=== PATIENT | male | born 1960 | race Caucasian/White ===

== ENCOUNTER → 2023-02-15 14:47 | Outpatient (REF) | payer OTHER, SELFPAY ==
--- NOTE | 2023-02-15 14:00 | CA_ITS ---
Transthoracic Echocardiogram Patient (Last, First, Middle): Scott Fuller, Gender: Male Date of : 1960 Age: 62 Procedure Date: 02/15/2023 Procedure Type: Transthoracic Echocardiogram Location: [place] Height: 180.34 cm Weight: 104.33 kg BSA: 2.24 m2 Heart Rate: bpm BP: 112 / 80 mmHg Health Actuary: TO Referring MD: Jacki Pate MD Lockstitch Collar Setter: Josiah Howell MD Symptoms: HEART FAILURE Study Quality: Technically Difficult ECG Rhythm: Sinus Conclusions: - 1. Technically difficult study despite use of contrast agent 2. Normal LV systolic function with LVEF of 55-60% with impaired relaxation filling pattern 3. Cardiac valvular Dopplers within normal limits 4. Normal RV systolic pressure 5. No gross pericardial effusion Findings Procedure Information Contrast agent, definity, is being given per protocol without apparent complications. Left Ventricle Normal left ventricular size, thickness, and systolic function. The visually estimated ejection fraction is between 55-60%. Spectral Doppler is indicative of an impaired relaxation filling pattern. E/E prime ratio is between 8 and 15 consistent with indeterminate filling pressures. Right Ventricle Normal right ventricular cavity size. There is normal right ventricular systolic function. Atria The left atrium is normal in size. Interatrial shunt cannot be excluded. The right atrium was not well visualized. Aortic Valve The aortic valve was not well visualized. There is no aortic valve stenosis. There is no aortic valve regurgitation. Mitral Valve The mitral valve was not well visualized. There is trace mitral valve regurgitation. There is no mitral valve stenosis. Pulmonic Valve The pulmonic valve was not well visualized. Tricuspid Valve Likely normal tricuspid valve structure and function. There is trace tricuspid valve regurgitation. The right ventricular systolic pressure is 23 mmHg. Normal right atrial pressure. There is no evidence of pulmonary hypertension. Great Vessels The aorta was not well visualized. The pulmonary artery was not well visualized. Venous The inferior vena cava is normal in size and collapses greater than 50% with inspiration. Pericardium/Pleural There is no evidence of pericardial effusion. Measurements 2D Linear Measurements IVSd: 1.20 0.6-0.9/0.6-1.0 cm LVIDd: 3.95 3.9-5.3/4.2-5.9 cm LVIDd Index: 1.76 2.4-3.2/2.2-3.1 cm/m2 LVIDs: 2.60 2.0-3.6 cm LVPWd: 0.91 0.7-1.1 cm LV Mass: 167.81 67-162/88-224 g LV Mass Index: 74.92 43-95/49-115 g/m2 LVOT Diam: 2.60 3.0+(-)1.3 cm 2D Systolic Function EF 4C: 55.00 >55% EF 2C: 55.30 >55% EF BiP: 54.30 >55% Mitral Valve MV Pk E: 0.45 MV PK A: 0.66 MV Decel Time: 299.00 E/A: 0.70 E'Lateral: 7.18 E'Medial: 4.79 E/E' Med: 9.50 E/E' Lat: 6.30 PHT: 87.00 MVA PHT: 2.53 Decel [place]: 1.52 Aortic Valve AoV Pk Abel: 1.31 AoV Mn Abel: 0.88 AoV VTI: 0.28 AoV Pk Grad: 7.00 Aov Mn Grad: 4.00 SUNITHA Cont.VTI: 3.32 LVOT LVOT Pk Abel: 0.87 LVOT Mn Abel: 0.48 LVOT VTI: 0.17 LVOT Pk Grad: 3.00 LVOT Mn Grad: 1.00 LVOT Diam: 2.60 LVOT Area: 5.31 Diastolic Function MV Pk E: 0.45 MV Pk A: 0.66 E/A: 0.70 E'Medial: 4.79 E/E' Med: 9.50 E' Laterial: 7.18 E/E' Lat: 6.30 Right Ventricle TAPSE (mm): 25.30 TVS' Abel: 14.70 Tricuspid Valve TR Pk Abel: 2.21 TR Pk Grad: 20.00 RA Press: 3.00 RVSP: 23.00 Updated in Other Vendor System with Status of Final Josiah Howell MD electronically signed on 02/16/2023 3:31:28 PM with status of Final
== END ==
LOC: HO.CARD 14:47
PROVIDERS: PCP Family Medicine; Visit Provider Family Medicine
DX: I50.9 Heart failure, unspecified (principal)
CPT/HCPCS: 93306; Q9957